=== PATIENT | male | born 1960 | race Caucasian/White ===

== ENCOUNTER 2020-02-12 17:10 | Inpatient (IN) | payer BC, OTHER ==
[~2020-02-12] VITALS: Ht 167 cm; Wt 86.8 kg
[2020-02-12] VITALS (10 sets, daily range): BP systolic 132–175; BP diastolic 79–93
[~2020-02-12 17:10] MED LIST: HYDR-3454 PO
[2020-02-12] MEDS ORDERED: TICAGRELOR 90 MG TABLET (BRILINTA) PO ONE (17:30)
[2020-02-12] MEDS ORDERED: LACTATED RINGERS 1,000 ML IV SCH (17:30)
[2020-02-12] MEDS ORDERED: ASPIRIN 81 MG CHEW (CHILDREN'S ASA) PO ONE (17:30)
[2020-02-12] MEDS ORDERED: PROMETHAZINE INJ 25 MG/ML (PHENERGAN) AMP IVP ONE (17:30)
--- NOTE | 2020-02-12 17:34 | ED General ---
General Chief Complaint: Glucose Problems Stated Complaint: HIGH BLOOD SUGAR Source of Information: Patient Exam Limitations: No Limitations History of Present Illness Date Seen by Provider: Feb 12, 2020 Time Seen by Provider: 17:30 Initial Comments To ER [place] [facility] with ongoing nausea that have been present since Monday, 4 days ago. This began after eating at [employer] in [place]. The other individual with whom he ate has no symptoms. He did have a bit of diarrhea. No fevers no cough no shortness of breath and no chest pain. [place] [facility] [place] he was noted to have a high blood sugar of 400s without being a known diabetic and was referred to ER. Timing/Duration: 1-2 Days Severity: Moderate Associated Systoms: No Chest Pain, No Cough, No Fever/Chills; Nausea/Vomiting Allergies and Home Medications Allergies Coded Allergies: Penicillins (Unverified Allergy, Unknown, 08/14/06) Home Medications Hydrocodone Bit/Acetaminophen 1 Each Tablet, 1-2 TAB PO EVERY 4-6HRS PRN for PAIN Prescribed by: GENE MORALES on 10/03/14 1217 Patient Home Medication List Home Medication List Reviewed: Yes Review of Systems Review of Systems Constitutional: see HPI; No chills, No fever Respiratory: see HPI; No cough, No dyspnea on exertion, No short of breath Cardiovascular: see HPI; No chest pain Gastrointestinal: No abdominal pain; diarrhea, nausea Genitourinary: no symptoms reported Musculoskeletal: no symptoms reported Skin: no symptoms reported Psychiatric/Neurological: No Symptoms Reported Hematologic/Lymphatic: No Symptoms Reported Immunological/Allergic: no symptoms reported Past Kpbysms-Ifymnf-Qaktkg Hx Patient Social History Recent Foreign Travel: No Contact w/Someone Who Travel: No Physical Exam Vital Signs Vital Signs - First Documented 02/12/20 17:16 Temp 35.1 Pulse 58 Resp 18 B/P (MAP) 154/94 (114) Pulse Ox 96 O2 Delivery Room Air Capillary Refill : Height, Weight, BMI Height: 5'7.00" Weight: 219lbs. oz. 99.262218gv; BMI Method: General Appearance: No Apparent Distress, WD/WN, Other (appears ill, rather stoic. Blood pressure 146/90, heart rate is 57 appears to be atrial fibrillation. There does appear to be ST elevation in leads 23 aVF and V3 V4 V5 with ST depression in aVR and V1) Eyes: Bilateral Eye Normal Inspection, Bilateral Eye PERRL, Bilateral Eye EOMI Neck: Full Range of Motion, Normal Inspection Respiratory: Normal Breath Sounds, No Accessory Muscle Use, No Respiratory Distress Cardiovascular: Regular Rate, Rhythm, Normal Peripheral Pulses Gastrointestinal: Non Tender, Soft Extremity: Normal Capillary Refill, Normal Inspection Neurologic/Psychiatric: Alert, Oriented x3 Skin: Normal Color, Warm/Dry Comments Despite EKG changes suggesting STEMI he has no shortness of breath no diaphoresis and adamantly denies any pain or discomfort anywhere. Focused Exam Lactate Level 02/12/20 17:58: Lactic Acid Level 2.62*H Lactic Acid Level Laboratory Tests Test 02/12/20 17:58 Lactic Acid Level 2.62 MMOL/L (0.50-2.00) *H Progress/Results/Core Measures Suspected Sepsis SIRS Temperature: Pulse: Respiratory Rate: Laboratory Tests 02/12/20 17:22: White Blood Count 13.3H Blood Pressure / Mean: 02/12/20 17:58: Lactic Acid Level 2.62*H Laboratory Tests 02/12/20 17:22: Creatinine 1.58H, INR Comment 1.1, Platelet Count 225, Total Bilirubin 1.5H Results/Orders Lab Results Laboratory Tests Test 02/12/20 17:22 02/12/20 17:27 02/12/20 17:58 02/12/20 18:13 Range/Units White Blood Count 13.3 H 4.3-11.0 10^3/uL Red Blood Count 4.97 4.35-5.85 10^6/uL Hemoglobin 15.0 13.3-17.7 G/DL Hematocrit 42 40-54 % Mean Corpuscular Volume 85 80-99 FL Mean Corpuscular Hemoglobin 30 25-34 PG Mean Corpuscular Hemoglobin Concent 35 32-36 G/DL Red Cell Distribution Width 13.0 10.0-14.5 % Platelet Count 225 130-400 10^3/uL Mean Platelet Volume 13.0 H 7.4-10.4 FL Neutrophils (%) (Auto) 83 H 42-75 % Lymphocytes (%) (Auto) 8 L 12-44 % Monocytes (%) (Auto) 10 0-12 % Eosinophils (%) (Auto) 0 0-10 % Basophils (%) (Auto) 0 0-10 % Neutrophils # (Auto) 11.0 H 1.8-7.8 X 10^3 Lymphocytes # (Auto) 1.0 1.0-4.0 X 10^3 Monocytes # (Auto) 1.3 H 0.0-1.0 X 10^3 Eosinophils # (Auto) 0.0 0.0-0.3 10^3/uL Basophils # (Auto) 0.0 0.0-0.1 10^3/uL Neutrophils % (Manual) 77 % Lymphocytes % (Manual) 12 % Monocytes % (Manual) 6 % Eosinophils % (Manual) 1 % Band Neutrophils 4 % Blood Morphology Comment NORMAL Erythrocyte Sedimentation Rate 32 H 0-30 MM/HR Prothrombin Time 14.8 H 12.2-14.7 SEC INR Comment 1.1 0.8-1.4 Activated Partial Thromboplast Time 25 24-35 SEC Sodium Level 126 L 135-145 MMOL/L Potassium Level 3.6 3.6-5.0 MMOL/L Chloride Level 87 L 98-107 MMOL/L Carbon Dioxide Level 15 L 21-32 MMOL/L Anion Gap 24 H 5-14 MMOL/L Blood Urea Nitrogen 52 H 7-18 MG/DL Creatinine 1.58 H 0.60-1.30 MG/DL Estimat Glomerular Filtration Rate 45 BUN/Creatinine Ratio 33 Glucose Level 517 *H 70-105 MG/DL Calcium Level 9.8 8.5-10.1 MG/DL Corrected Calcium 10.0 8.5-10.1 MG/DL Total Bilirubin 1.5 H 0.1-1.0 MG/DL Aspartate Amino Transf (AST/SGOT) 75 H 5-34 U/L Alanine Aminotransferase (ALT/SGPT) 288 H 0-55 U/L Alkaline Phosphatase 98 40-136 U/L Troponin I 11.724 *H <0.028 NG/ML C-Reactive Protein High Sensitivity 25.78 H 0.00-0.50 MG/DL Total Protein 7.4 6.4-8.2 GM/DL Albumin 3.8 3.2-4.5 GM/DL Glucometer 504 *H 70-110 MG/DL Lactic Acid Level 2.62 *H 0.50-2.00 MMOL/L My Orders Orders - JUAN ANDREWS PLATFORM WORKER Cbc With Automated Diff (02/12/20 17:12) Comprehensive Metabolic Panel (02/12/20 17:12) Blood Culture (02/12/20 17:12) Sputum Culture (02/12/20 17:12) Urinalysis (02/12/20 17:12) Urine Culture (02/12/20 17:12) Protime With Inr (02/12/20 17:12) Partial Thromboplastin Time (02/12/20 17:12) Chest 1 View, Ap/Pa Only (02/12/20 17:12) Ed Iv/Invasive Line Start (02/12/20 17:12) Ed Iv/Invasive Line Start (02/12/20 17:12) Vital Signs Adult Sepsis Patie Q15M (02/12/20 17:12) O2 (02/12/20 17:12) Remove Rings In Anticipation O (02/12/20 17:12) Lactic Acid Analyzer (02/12/20 17:12) Aspirin Chewable Tablet (Baby Aspirin Ch (02/12/20 17:30) Ticagrelor Tablet (Brilinta Tablet) (02/12/20 17:30) Promethazine Injection (Phenergan Injec (02/12/20 17:30) Lactated Ringers (Lr 1000 Ml Iv Solution (02/12/20 17:30) Troponin I (02/12/20 17:28) Erythrocyte Sedimentation Rate (02/12/20 17:29) Hs C Reactive Protein (02/12/20 17:29) Accucheck Stat ONCE (02/12/20 17:29) Coronavirus Sars-Cov-2 So 2018 (02/12/20 17:35) Manual Differential (02/12/20 17:22) Insulin (Regular) Human (Novolin R (Per (02/12/20 17:45) Insulin (Regular) Human (Novolin R (Per (02/12/20 17:38) Hepatitis Panel Acute (02/12/20 17:53) Midazolam Injection (Versed Injection) (02/12/20 18:21) Fentanyl Injection (Sublimaze Injection (02/12/20 18:21) Heparin (Bolus Per Protocol) (Heparin (B (02/12/20 18:21) Nitro Drip 70643 Mcg/D5w (Nitroglycerin (02/12/20 18:21) Lidocaine 1% Inj 20 Ml (Xylocaine 1% Inj (02/12/20 18:21) Ns Iv 1000 Ml (Sodium Chloride 0.9%) (02/12/20 18:21) Heparin (Health Careers Instructor) (Heparin (Health Careers Instructor)) (02/12/20 18:22) Medications Given in ED Current Medications Medications Dose Ordered Sig/Valerie Route Start Time Stop Time Status Last Admin Dose Admin Aspirin 324 mg ONCE ONCE PO 02/12/20 17:30 02/12/20 17:31 DC 02/12/20 17:39 324 MG Promethazine HCl 12.5 mg ONCE ONCE IVP 02/12/20 17:30 02/12/20 17:31 DC 02/12/20 17:37 12.5 MG Ticagrelor 180 mg ONCE ONCE PO 02/12/20 17:30 02/12/20 17:31 DC 02/12/20 17:39 180 MG Vital Signs/I&O 02/12/20 17:16 Temp 35.1 Pulse 58 Resp 18 B/P (MAP) 154/94 (114) Pulse Ox 96 O2 Delivery Room Air Capillary Refill : Departure Impression Primary Impression: Diabetes mellitus type 2 Additional Impressions: ST elevation COVID PUI Disposition: 09 ADMITTED INPATIENT Condition: Stable Admissions Decision to Admit Reason: Admit from ER (General) Decision to Admit/Date: Feb 12, 2020 Time/Decision to Admit Time: 17:34 Departure-Patient Inst. Referrals: DEVYN WEBB MD (PCP) Primary Care Physician JUAN ANDREWS APRN Feb 12, 2020 17:34
[2020-02-12 17:36] LABS: BASOPHILS % (AUTO) 0 % (0-10); EOSINOPHILS % (AUTO) 0 % (0-10); HEMATOCRIT 42 % (40-54); LYMPHOCYTES % (AUTO) 8 % (12-44); MEAN CORPUSCULAR HEMOGLOBIN 30 PG (25-34); MEAN CORPUSCULAR HGB CONC 35 G/DL (32-36); MEAN CORPUSCULAR VOLUME 85 FL (80-99); MONOCYTES # (AUTO) 1.3 X 10^3 (0.0-1.0); MONOCYTES % (AUTO) 10 % (0-12); NEUTROPHILS % (AUTO) 83 % (42-75); PLATELET COUNT 225 10^3/uL (130-400); WHITE BLOOD COUNT 13.3 10^3/uL (4.3-11.0)
[2020-02-12] MEDS ORDERED: inSUlin (REGULAR) HUMAN 1 UNIT/0.01 ML (CHARGE PER UNIT) ONE (17:38)
[2020-02-12 17:41] LABS: ALBUMIN 3.8 GM/DL (3.2-4.5)
[2020-02-12 17:42] LABS: POTASSIUM 3.6 MMOL/L (3.6-5.0)
[2020-02-12 17:43] LABS: CALCIUM 9.8 MG/DL (8.5-10.1)
[2020-02-12 17:44] LABS: TOTAL PROTEIN 7.4 GM/DL (6.4-8.2)
[2020-02-12] MEDS ORDERED: inSUlin (REGULAR) HUMAN 1 UNIT/0.01 ML (CHARGE PER UNIT) IV SCH (17:45)
[2020-02-12 17:46] LABS: BILIRUBIN,TOTAL 1.5 MG/DL (0.1-1.0)
[2020-02-12 17:48] LABS: CREATININE SERUM 1.58 MG/DL (0.60-1.30)
[2020-02-12 17:49] LABS: INR 1.1 (0.8-1.4); PROTHROMBIN TIME PATIENT 14.8 SEC (12.2-14.7)
[2020-02-12 17:54] LABS: BAND NEUTROPHILS 4 %; EOSINOPHILS % (MANUAL) 1 %; LYMPHOCYTES % (MANUAL) 12 %; MONOCYTES % (MANUAL) 6 %; NEUTROPHILS % (MANUAL) 77 %; RBC MORPH NORMAL
--- NOTE | 2020-02-12 18:02 | Diagnostic Imaging Report ---
PATIENT HISTORY: ST elevation myocardial infarction. TECHNIQUE: Frontal view of the chest. COMPARISON: None. FINDINGS: The lung volumes are normal. No focal consolidation is seen. No large pleural effusion or pneumothorax is seen. The cardiomediastinal silhouette is normal in size and contour. No acute osseous abnormality is seen. Degenerative changes are seen in the acromioclavicular joints, bilaterally. IMPRESSION: No acute pulmonary abnormality is seen. Findings discussed with Bulmaro Murphy by Dr. Hernandez, on 02/12/2020 5:59 PM. Dictated by: Dictated on workstation # [id number]
--- NOTE | 2020-02-12 18:08 | NUR ---
CONSENT OBTAINED FROM PATIENT FOR HEART CATHERIZATION. PATIENT VERBALIZED UNDERSTANDING.
--- NOTE | 2020-02-12 18:08 | NUR ---
DEFIB PATCHES PLACED ON PATIENT.
--- NOTE | 2020-02-12 18:17 | NUR ---
COVID SWAB PERFORMED.
[2020-02-12] MEDS ORDERED: NITRO DRIP 25000 MCG/D5W 0 ML IV ONE (18:21)
[2020-02-12] MEDS ORDERED: LIDOCAINE 1% INJ 20 ML 20 ML VIAL ONE (18:21)
[2020-02-12] MEDS ORDERED: HEParin 1000 UNIT/ML (10ML VIAL) FOR BOLUS ONE (18:21)
[2020-02-12] MEDS ORDERED: NS IV 1000 ML 1,000 ML ONE (18:21)
[2020-02-12] MEDS ORDERED: fentaNYL INJECTION 100 MCG/2 ML AMP ONE (18:21)
[2020-02-12] MEDS ORDERED: MIDAZOLAM 5 MG/5 ML (VERSED) VIAL ONE (18:21)
[2020-02-12] MEDS ORDERED: HEParin (CATH LAB) 2,000 ML IV ONE (18:22)
--- NOTE | 2020-02-12 18:24 | NUR ---
DR. THAKUR IN ROOM.
--- NOTE | 2020-02-12 18:39 | Cardiac Procedure Note-CS/ASA ---
Pre-Procedure Note Pre-Op Procedure Note H&P Reviewed The H&P was reviewed, patient examined and no changes noted. Date H&P Reviewed: Feb 12, 2020 Time H&P Reviewed: 18:39 Conscious Sedation Pre-Proced Time 18:39 ASA Score 3 For ASA 3 and 4: Consider anesthesia and medical clearance. Also, for patients with a history of failed moderate sedation consider anesthesia. Airway Lungs Heart ASA score ASA 1: a normal healthy patient ASA 2: a patient with a mild systemic disease (mid diabetes, controlled hypertension, obesity x ASA 3: a patient with a severe systemic disease that limits activity (angina, COPD, prior Myocardial infarction) ASA 4: a patient with an incapacitating disease that is a constant threat to life (CHF, renal failure) ASA 5: a moribund patient not expected to survive 24 hrs. (ruptured aneurysm) ASA 6: a declared brain- patient whose organs are being harvested. For emergent operations, add the letter E after the classification Mallampati Classification Grade 3 Sedation Plan Analgesia, Amnesia, Plan communicated to team members, Discussed options with patient/fam, Discussed risks with patient/fam The patient is an appropriate candidate to undergo the planned procedure, sedation, and anesthesia. The patient immediately re-assessed prior to indication. MARITZA THAKUR MD Feb 12, 2020 18:39
--- NOTE | 2020-02-12 18:39 | Consultation-Cardiology ---
HPI-Cardiology Cardiology Consultation Date of Consultation 02/12/20 Date of Admission Time Seen by Provider: 18:34 Indication: Subacute AL HPI 59 years old gentleman with no significant past medical history, started to have nausea and vomiting about a week ago, felt generalized weakness, denied any chest pain but felt that he has no energy, no shortness of breath. No syncope o r near syncopal episode persisted until today, seen at [facility] and referred to the emergency room for evaluation. He was noted to have abnormal EKG and elevated troponin level in addition to electrolyte abnormality and hyperglycemia. Home Medications & Allergies Allergies: Coded Allergies: Penicillins (Unverified Allergy, Unknown, 08/14/06) Home Medication List Reviewed: Yes RID-Jawrhj-Uigoec Hx Patient Social History Alcohol Use: Denies Use Recreational Drug Use: No Smoking Status: Never a Smoker 2nd Hand Smoke Exposure: No Recent Foreign Travel: No Recent Infectious Disease Expo: No Recent Hopitalizations: No Past Medical History No known past medical history Family Medical History Family Medical Hx Family history of diabetes Review of Systems-General Review of Systems Constitutional: see HPI; No chills, No fever; malaise, weakness EENTM: see HPI Respiratory: see HPI; No cough, No dyspnea on exertion, No short of breath Cardiovascular: see HPI; No chest pain Gastrointestinal: see HPI; No abdominal pain; diarrhea, nausea, vomiting Genitourinary: no symptoms reported, see HPI Musculoskeletal: no symptoms reported, see HPI Skin: no symptoms reported, see HPI Psychiatric/Neurological: No Symptoms Reported, See HPI Reviewed Test Results Reviewed Test Results Lab Laboratory Tests Test 02/12/20 17:22 02/12/20 17:27 02/12/20 17:58 02/12/20 18:13 Range/Units White Blood Count 13.3 H 4.3-11.0 10^3/uL Red Blood Count 4.97 4.35-5.85 10^6/uL Hemoglobin 15.0 13.3-17.7 G/DL Hematocrit 42 40-54 % Mean Corpuscular Volume 85 80-99 FL Mean Corpuscular Hemoglobin 30 25-34 PG Mean Corpuscular Hemoglobin Concent 35 32-36 G/DL Red Cell Distribution Width 13.0 10.0-14.5 % Platelet Count 225 130-400 10^3/uL Mean Platelet Volume 13.0 H 7.4-10.4 FL Neutrophils (%) (Auto) 83 H 42-75 % Lymphocytes (%) (Auto) 8 L 12-44 % Monocytes (%) (Auto) 10 0-12 % Eosinophils (%) (Auto) 0 0-10 % Basophils (%) (Auto) 0 0-10 % Neutrophils # (Auto) 11.0 H 1.8-7.8 X 10^3 Lymphocytes # (Auto) 1.0 1.0-4.0 X 10^3 Monocytes # (Auto) 1.3 H 0.0-1.0 X 10^3 Eosinophils # (Auto) 0.0 0.0-0.3 10^3/uL Basophils # (Auto) 0.0 0.0-0.1 10^3/uL Neutrophils % (Manual) 77 % Lymphocytes % (Manual) 12 % Monocytes % (Manual) 6 % Eosinophils % (Manual) 1 % Band Neutrophils 4 % Blood Morphology Comment NORMAL Erythrocyte Sedimentation Rate 32 H 0-30 MM/HR Prothrombin Time 14.8 H 12.2-14.7 SEC INR Comment 1.1 0.8-1.4 Activated Partial Thromboplast Time 25 24-35 SEC Sodium Level 126 L 135-145 MMOL/L Potassium Level 3.6 3.6-5.0 MMOL/L Chloride Level 87 L 98-107 MMOL/L Carbon Dioxide Level 15 L 21-32 MMOL/L Anion Gap 24 H 5-14 MMOL/L Blood Urea Nitrogen 52 H 7-18 MG/DL Creatinine 1.58 H 0.60-1.30 MG/DL Estimat Glomerular Filtration Rate 45 BUN/Creatinine Ratio 33 Glucose Level 517 *H 70-105 MG/DL Calcium Level 9.8 8.5-10.1 MG/DL Corrected Calcium 10.0 8.5-10.1 MG/DL Total Bilirubin 1.5 H 0.1-1.0 MG/DL Aspartate Amino Transf (AST/SGOT) 75 H 5-34 U/L Alanine Aminotransferase (ALT/SGPT) 288 H 0-55 U/L Alkaline Phosphatase 98 40-136 U/L Troponin I 11.724 *H <0.028 NG/ML C-Reactive Protein High Sensitivity 25.78 H 0.00-0.50 MG/DL Total Protein 7.4 6.4-8.2 GM/DL Albumin 3.8 3.2-4.5 GM/DL Glucometer 504 *H 70-110 MG/DL Lactic Acid Level 2.62 *H 0.50-2.00 MMOL/L Physical Exam Physical Exam Vital Signs Vital Signs - First Documented 02/12/20 17:16 Temp 35.1 Pulse 58 Resp 18 B/P (MAP) 154/94 (114) Pulse Ox 96 O2 Delivery Room Air Capillary Refill : Less Than 3 Seconds Height, Weight, BMI Height: 5'7.00" Weight: 219lbs. oz. 99.365976zp; 31.00 BMI Method: General Appearance: No Apparent Distress, WD/WN, Other (appears ill, rather stoic. Blood pressure 146/90, heart rate is 57 appears to be atrial fibrillation. There does appear to be ST elevation in leads 23 aVF and V3 V4 V5 [address] ST depression in aVR and V1) Eyes: Bilateral Eye Normal Inspection, Bilateral Eye PERRL, Bilateral Eye EOMI Neck: Full Range of Motion, Normal Inspection Respiratory: Normal Breath Sounds, No Accessory Muscle Use, No Respiratory Distress Cardiovascular: Regular Rate, Rhythm, Normal Peripheral Pulses Gastrointestinal: Non Tender, Soft Extremity: Normal Capillary Refill, Normal Inspection Neurologic/Psychiatric: Alert, Oriented x3 Skin: Normal Color, Warm/Dry A/P-Cardiology Admission Diagnosis Subacute myocardial infarction Hyperglycemia Acute renal failure Gastroenteritis Assessment/Plan Subacute myocardial infarction, patient had diffuse ST changes with troponin of 11. No active chest pain, planning to proceed with emergency cardiac ca theterization possible PTCA Acute renal failure, hypovolemia, receiving IV fluids. Continue to monitor. Hyperglycemia, will be managed by weave defect charting clerk and primary care team Electrolyte abnormality, metabolic acidosis. Receiving IV fluid, to correct as needed Nausea vomiting, diarrhea, generalized weakness, questionable gastroenteritis. Suspicion of COVID, currently in isolation MARITZA THAKUR MD Feb 12, 2020 18:38
[2020-02-12] MEDS ORDERED: HEParin DRIP 25000 UNIT/500ML 500 ML IV ONE (19:04)
[2020-02-12] MEDS ORDERED: NS IV 1000 ML 1,000 ML IV SCH ×2 (19:07→19:08)
[2020-02-12] MEDS ORDERED: 1/2 NS IV SOLUTION 1,000 ML IV SCH (19:08)
[2020-02-12] MEDS ORDERED: D5 1/2 NS 1000 ML IV SOLUTION 1,000 ML IV SCH (19:15)
[2020-02-12] MEDS ORDERED: PATIENT MAY USE OWN MEDS, ALL PO SCH (19:15)
[2020-02-12] MEDS ORDERED: POTASSIUM CL 10MEQ/50ML IVPB 50 ML IV SCH (19:15)
--- NOTE | 2020-02-12 19:20 | Cardiac Cath Report ---
Cardiac Cath Report Physician (s)/Tire Changer (s) Physician MARITZA THAKUR MD Pre-Procedure Diagnosis Pre-Procedure Diagnosis: Subacute myocardial infarction Post-Procedure Note Procedure Start Date: Feb 12, 2020 Name of Procedure: Left heart catheterization Findings/Procedure Note PROCEDURE NOTE: 59 years old gentleman admitted through the emergency room with generalized weakness, SDS elevation in lead 2 only, T-wave inversion in leads 3 and aVF, ST elevation V4 and V5 with T-wave inversion. Noted to have troponin of 11, denied any chest pain, has been feeling bad for the past 5 days. Decided to proceed with emergency cardiac catheterization. After explaining the procedure to the patient, all pros and cons were explained, all questions were answered. The patient signed the consent and then he was placed on the cardiac catheterization laboratory. Groin was prepped SL fashion local anesthesia was used. Sheath placed in the artery. Gregorio right and left catheter were used to access the coronary system. Pigtail was used to access the left ventricular cavity. Left ventriculogram was done At the end of the procedure the sheath was removed. Closure device was used FINDINGS: Hemodynamics LV 122/14, end-diastolic pressure 14 Aorta 131/56 mean of 88 ANATOMY: Left Main has severe stenosis Left Anterior Descending has severe stenosis with multiple segment of severe stenosis at the proximal and midportion Left Circumflex is dominant artery with severe ostial stenosis Right Coronory Artery is smaller artery totally occluded at the midportion LV Gram is normal in size, hypokinesia of the inferior wall, estimated ejection fraction 50 percent CONCLUSION: 1. subacute myocardial infarction with total occlusion of right coronary artery and severe left main coronary artery stenosis, multiple segment of severe stenosis in the LAD and ostial circumflex disease 2. Normal left ventricular size, hypokinesia at the inferior wall, preserved systolic function with ejection fraction 50 percent, normal left ventricular end-diastolic pressure Hospital course: Patient will be admitted to the intensive care unit, started on IV fluids, started on insulin drip, will work on correcting his diabetic ketoacidosis, s tarted on aspirin and received one dose of Brilinta 180 mg in the emergency room. Discussed the management plan with Dr. fulton and we'll arrange for transfer for evaluation for bypass surgery. Final diagnosis: Diabetic ketoacidosis Subacute myocardial infarction Coronary artery disease Hypertension Anesthesia Type: Conscious Sedation Estimated blood loss (mL): 25 ml Contrast Amount: 28 ml Total Radiation Dose: 470 mGy Post-Procedure Diagnosis Post-operative diagnosis: Diabetic ketoacidosis Subacute myocardial infarction Coronary artery disease Hypertension MARITZA THAKUR MD Feb 12, 2020 19:20
[2020-02-12] MEDS: POTASSIUM CL 10MEQ/50ML IVPB 50 ML IV SCH ×2 (20:22→22:06)
[2020-02-12 21:09] LABS: HEMOGLOBIN 14.5 G/DL (13.3-17.7); MEAN PLATELET VOLUME 13.2 FL (7.4-10.4); RED CELL DISTRIBUTION WIDTH 12.8 % (10.0-14.5); WHITE BLOOD COUNT 11.2 10^3/uL (4.3-11.0)
[2020-02-12 21:20] LABS: BUN/CREATININE RATIO 37; CALCIUM 9.4 MG/DL (8.5-10.1); CARBON DIOXIDE 14 MMOL/L (21-32); CHLORIDE 91 MMOL/L (98-107); CREATININE SERUM 1.32 MG/DL (0.60-1.30); GFR ESTIMATED 56; POTASSIUM 3.2 MMOL/L (3.6-5.0); SODIUM 129 MMOL/L (135-145)
--- OUTSIDE RECORDS SUMMARY | 2020-02-12 21:24 | XMS REPORT ---
Author Author [employer] [facility] [employer] [facility] [employer] Address [address] [address] Care Team Providers Care Negative Developer Name Role Phone DEVYN WEBB Unavailable Allergies No Information Medications No Information Problems The data below is from unstructured sourcesNo known problems or medical conditions. Procedures No Information Immunizations The data below is from unstructured sourcesNo immunization records. Results No Information Vital Signs The data below is from unstructured sources Vital Response Date/Time Temperature (Fahrenheit) 99.1 degree s F (97.6 - 99.5) Temperature (Calculated Celsius) 37. 39162 degrees C (36.4 - 37.5) Temperature Source Temporal Pulse Rate (adult) 76 bpm (60 - 90) Respiratory Rate 16 bpm (12 - 24) O2 Sat by Pulse Oximetry 96 % (88 - 100) Blood Pressure 122/77 mm Hg Pain Pain Intensity 3 Height (Feet) 5 feet Height (Inches) 7.00 inches Height (Calculated Centimeters) 170. 642754 cm Weight (Pounds) 219 pounds Weight (Calculated Grams) 63642.730 gm Weight (Calculated Kilograms) 99.336 730 kilograms Height 5 ft 7 in Weight 219 lb Body Mass Index 34.3 kg/m^2 Interventions No Information Plan of Treatment The data below is from unstructured sourcesNo plan of care. Goals No Information Social History No Information Functional Status The data below is from unstructured sourcesNo functional status results. Mental Status No Information Encounters No Information Medical Equipment No Information Payers No Information Advance Directives Directive Response Recor ded Date/Time Advance Directives No 6:50am Health Care Power of Trading Assistant No 10/03/14 6:50am Organ Donor No 10/03/14 6:50am Resuscitation Status Full Code 10/03/14 6:50am Discharge Instructions No hospital discharge instructions. Additional Source Comments This clinical document has been generated using [employer] software that has been certified by the Office of the National Coordinator for Health Information Technology (ONC 15.99.04.3023.Diam.31.00.0.293346) and the National Committee for High School Mathematics Teacher (NCQA, as an eMeasure certified technology). FOR RECORDS PERTAINING TO PATIENTS WHO ARE OR HAVE BEEN ENROLLED IN A CHEMICAL D EPENDENCY/SUBSTANCE ABUSE PROGRAM, SOME INFORMATION MAY BE OMITTED. This clinica l summary was aggregated from multiple sources. Caution should be exercised in using it in the provision of clinical care. This summary normalizes information from multiple sources, and as a consequence, information in this document may ma terially change the coding, format and clinical context of patient data. In mirela tion, data may be omitted in some cases. CLINICAL DECISIONS SHOULD BE BASED ON T HE PRIMARY CLINICAL RECORDS. [employer] provides no warranty or guara ntee of the accuracy or completeness of information in this document.The followi ng information is based on time limited clinical information
--- OUTSIDE RECORDS SUMMARY | 2020-02-12 21:24 | XMS REPORT | Continuity of Care Document ---
Author Organization Unknown Address Unknown Phone Unavailable Allergies Active Description Code Type Severity Reaction Onset Reported/Identified Relationship to Patient Clinical Status Yes Penicillins [id number] Drug Aller gy Unknown N/A 08/14/2006 Medications There is no data. Problems Date Dx Coded Attending Type Code Diagnosis Diagnosed By 10/03/2014 KIM DUNN, MARGOTH Horner Ot 553.21 INCISIONAL HERNIA 10/08/2014 KIM DUNN, MARGOTH Horner Ot 553.20 10/08/2014 KIM DUNN, MARGOTH Horner Ot V72.63 10/08/2014 KIM DUNN, MARGOTH Horner Ot V74.8 02/12/2020 KIM DUNN, MARGOTH Horner Ot 553.20 VENTRAL HERNIA NOS 02/12/2020 KIM DUNN, MARGOTH Horner Ot V72.63 PRE-PROCEDURAL LABORATORY EXAMINATION 02/12/2020 KIM DUNN, MARGOTH Horner Ot V74.8 SCREEN-BACTERIAL DIS NEC Procedures There is no data. Results Test Result Range Complete blood count (CBC) with automate d white blood cell (WBC) differential - 02/12/20 17:22 Blood leukocytes automated count (number/volume) 13.3 10*3/uL 4.3-11.0 Blood erythrocytes automated count (number/volume) 4.97 10*6/uL 4.35-5.85 Venous blood hemoglobin measurement (mass/volume) 15.0 g/dL 13.3-17.7 Blood hematocrit (volume fraction) 42 % 40-54 Automated erythrocyte mean corpuscular volume 85 [ foz_us] 80-99 Automated erythrocyte mean corpuscular h emoglobin (mass per erythrocyte) 30 pg 25-34 Automated erythrocyte mean corpuscular h emoglobin concentration measurement (mass/volume) 35 g/dL 32-36 Automated erythrocyte distribution width ratio 13. 0 % 10.0- 14.5 Automated blood platelet count (count/volume) 225 10*3/uL 130-400 Automated blood platelet mean volume measurement 13.0 [foz_us] 7.4-10.4 Automated blood neutrophils/100 leukocytes 83 % 42-75 Automated blood lymphocytes/100 leukocytes 8 % 12-44 Blood monocytes/100 leukocytes 10 % 0-12 Automated blood eosinophils/100 leukocytes 0 % 0-10 Automated blood basophils/100 leukocytes 0 % 0-10 Blood neutrophils automated count (number/volume) 11.0 10*3 1.8-7.8 Blood lymphocytes automated count (number/volume) 1.0 10*3 1.0-4.0 Blood monocytes automated count (number/volume) 1. 3 10*3 0.0-1.0 Automated eosinophil count 0.0 10*3/uL 0 .0-0.3 Automated blood basophil count (count/volume) 0.0 10*3/uL 0.0-0.1 Comprehensive metabolic panel - 02/12/20 17:22 Serum or plasma sodium measurement (moles/volume) 126 mmol/L 135-145 Serum or plasma potassium measurement (moles/volume) 3.6 mmol/L 3.6-5.0 Serum or plasma chloride measurement (moles/volume) 87 mmol/L 98-107 Carbon dioxide 15 mmol/L 21-32 Serum or plasma anion gap determination (moles/volume) 24 mmol/L 5-14 Serum or plasma urea nitrogen measurement (mass/volume ) 52 mg/dL 7-18 Serum or plasma creatinine measurement (mass/volume) 1.58 mg/dL 0.60-1.30 Serum or plasma urea nitrogen/creatinine mass ratio 33 NRG Serum or plasma creatinine measurement w ith calculation of estimated glomerular filtration rate 45 NRG Serum or plasma glucose measurement (mass/volume) 517 mg/dL 70-105 Serum or plasma calcium measurement (mass/volume) 9.8 mg/dL 8.5-10.1 Serum or plasma total bilirubin measurement (mass/volu me) 1.5 mg/dL 0.1-1.0 Serum or plasma alkaline phosphatase mookie surement (enzymatic activity/volume) 98 U/L 40-136 Serum or plasma aspartate aminotransfera se measurement (enzymatic activity/volume) 75 U/L 5-34 Serum or plasma alanine aminotransferase measurement (enzymatic activity/volume) 288 U/L 0-55 Serum or plasma protein measurement (mass/volume) 7.4 g/dL 6.4-8.2 Serum or plasma albumin measurement (mass/volume) 3.8 g/dL 3.2-4.5 CALCIUM CORRECTED 10.0 mg/dL 8.5-10.1 PT panel in platelet poor plasma by coag ulation assay - 02/12/20 17:22 Prothrombin time (PT) in platelet poor plasma by coagu lation assay 14.8 s 12.2-14.7 INR in platelet poor plasma or blood by coagulation as say 1.1 0.8-1.4 Activated partial thromboplastin time (a PTT) in platelet poor plasma bycoagulation assay - 02/12/20 17:22 Activated partial thromboplastin time (a PTT) in platelet poor plasma bycoagulation assay 25 s 24-35 Manual absolute plasma cell count - 01/26 03/16 17:22 Blood monocytes/100 leukocytes 6 % NRG Manual blood segmented neutrophils/100 leukocytes 77 % NRG Blood band neutrophils/100 leukocytes 4 % NRG Manual blood lymphocytes/100 leukocytes 12 % NRG Manual eosinophils/100 leukocytes in nose 1 % NRG Blood erythrocyte morphology finding identification NORMAL NRG Serum or plasma C reactive protein measu rement (mass/volume) - 02/12/20 17:22 Serum or plasma C reactive protein measurement (mass/v olume) 25.78 mg/dL 0.00-0.50 Serum or plasma troponin i.cardiac measu rement (mass/volume) - 02/12/20 17:22 Serum or plasma troponin i.cardiac measurement (mass/v olume) 11.724 ng/mL <0.028 Erythrocyte sedimentation rate by marvel gren method - 02/12/20 17:22 Erythrocyte sedimentation rate by westergren method 32 mm 0- 30 Capillary blood glucose measurement by g lucometer (mass/volume) - 02/12/20 17:27 Capillary blood glucose measurement by glucometer (mas s/volume) 504 mg/dL 70-110 Blood lactic acid measurement (moles/vol ume) - 02/12/20 17:58 Blood lactic acid measurement (moles/volume) 2.62 mmol/L 0.50-2.00 Capillary blood glucose measurement by g lucometer (mass/volume) - 02/12/20 19:57 Capillary blood glucose measurement by glucometer (mas s/volume) 396 mg/dL 70-110 Serum or plasma lactate measurement (mol es/volume) - 02/12/20 20:43 Serum or plasma lactate measurement (moles/volume) 2.62 mmol/L 0.50-2.00 Whole blood basic metabolic panel - 01/26 03/16 20:43 Serum or plasma sodium measurement (moles/volume) 129 mmol/L 135-145 Serum or plasma potassium measurement (moles/volume) 3.2 mmol/L 3.6-5.0 Serum or plasma chloride measurement (moles/volume) 91 mmol/L 98-107 Serum or plasma anion gap determination (moles/volume) 24 mmol/L 5-14 Serum or plasma urea nitrogen measurement (mass/volume ) 49 mg/dL 7-18 Serum or plasma creatinine measurement (mass/volume) 1.32 mg/dL 0.60-1.30 Serum or plasma urea nitrogen/creatinine mass ratio 37 NRG Serum or plasma creatinine measurement w ith calculation of estimated glomerular filtration rate 56 NRG Serum or plasma calcium measurement (mass/volume) 9.4 mg/dL 8.5-10.1 Automated blood complete blood count (he mogram) panel - 02/12/20 20:51 Blood leukocytes automated count (number/volume) 11.2 10*3/uL 4.3-11.0 Blood erythrocytes automated count (number/volume) 4.82 10*6/uL 4.35-5.85 Venous blood hemoglobin measurement (mass/volume) 14.5 g/dL 13.3-17.7 Blood hematocrit (volume fraction) 41 % 40-54 Automated erythrocyte mean corpuscular volume 85 [ foz_us] 80-99 Automated erythrocyte mean corpuscular h emoglobin (mass per erythrocyte) 30 pg 25-34 Automated erythrocyte mean corpuscular h emoglobin concentration measurement (mass/volume) 35 g/dL 32-36 Automated erythrocyte distribution width ratio 12. 8 % 10.0- 14.5 Automated blood platelet count (count/volume) 187 10*3/uL 130-400 Automated blood platelet mean volume measurement 13.2 [foz_us] 7.4-10.4 Capillary blood glucose measurement by g lucometer (mass/volume) - 02/12/20 21:00 Capillary blood glucose measurement by glucometer (mas s/volume) 390 mg/dL 70-110 Encounters ACCT No. Visit Date/Time Discharge Status Pt. Type Provider Facility Loc./Unit Complaint [id number] 10/03/2014 06:11:00 015 13:40:00 DIS Outpatient KIM DUNN, MARGOTH Horner [facility] VENTRAL HERNIA [id number] 09/26/2014 07:55:00 015 23:59:59 CLS Outpatient MARGOTH ALVAREZ MD [facility] PREOP VENTRAL HERNIA [id number] 02/12/2020 19:20:[address] Inpatient BLAZE DUNN, MARITZA Mancilla [facility] ICU [facility]
[2020-02-12 21:30] LABS: GLUCOSE 404 MG/DL (70-105)
--- OUTSIDE RECORDS SUMMARY | 2020-02-12 22:17 | XMS REPORT ---
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 11233 degrees C (36.4 - 37.5) Temperature Source Temporal Pulse Rate (adult) 76 bpm (60 - 90) Respiratory Rate 16 bpm (12 - 24) O2 Sat by Pulse Oximetry 96 % (88 - 100) Blood Pressure 122/77 mm Hg Pain Pain Intensity 3 Height (Feet) 5 feet Height (Inches) 7.00 inches Height (Calculated Centimeters) 170. 219557 cm Weight (Pounds) 219 pounds Weight (Calculated Grams) 87460.730 gm Weight (Calculated Kilograms) 99.336 730 kilograms [...] Directives No 6:50am Health Care Power of Business Practices Officer No 10/03/14 6:50am Organ Donor No 10/03/14 6:50am Resuscitation Status Full Code 10/03/14 6:50am Discharge Instructions No hospital discharge instructions. Additional Source Comments This clinical document has been generated using [employer] software that has been certified by the Office of the National Coordinator for Health Information Technology (ONC 15.99.04.3023.Diam.31.00.0.465861) and the National Committee for Mh Teacher (NCQA, as an eMeasure certified technology). [...] BASED ON T HE PRIMARY CLINICAL RECORDS. [employer] provides no warranty or guara ntee of the accuracy or completeness of information in this document.The followi ng information is based on time limited clinical information
--- OUTSIDE RECORDS SUMMARY | 2020-02-12 22:17 | XMS REPORT | Continuity of Care Document ---
Author Organization Unknown Address Unknown Phone Unavailable Allergies Active Description Code Type Severity Reaction Onset Reported/Identified Relationship to Patient Clinical Status Yes Penicillins [id number] Drug Aller gy Unknown N/A 08/14/2006 Medications [...] plasma chloride measurement (moles/volume) 91 mmol/L 98-107 Carbon dioxide 14 mmol/L 21-32 Serum or plasma anion gap determination (moles/volume) 24 mmol/L 5-14 Serum or plasma urea nitrogen measurement (mass/volume ) 49 mg/dL 7-18 Serum or plasma creatinine measurement (mass/volume) 1.32 mg/dL 0.60-1.30 Serum or plasma urea nitrogen/creatinine mass ratio 37 NRG Serum or plasma creatinine measurement w ith calculation of estimated glomerular filtration rate 56 NRG Serum or plasma glucose measurement (mass/volume) 404 mg/dL 70-105 Serum or plasma calcium measurement (mass/volume) 9.4 mg/dL 8.5-10.1 Beta-hydroxybutyric acid measurement - 0 02/12/20 20:43 Beta-hydroxybutyric acid measurement > mmol/L 0.00-0.27 Automated blood complete blood count (he mogram) [...] Status Pt. Type Provider Facility Loc./Unit Complaint [id number] 10/03/2014 06:11:00 015 13:40:00 DIS Outpatient MARGOTH ALVAREZ MD [facility] SDC VENTRAL HERNIA [id number] 09/26/2014 07:55:00 015 23:59:59 CLS Outpatient MARGOTH ALVAREZ MD [facility] PREOP VENTRAL HERNIA [id number] 02/12/2020 19:20:[address] Inpatient BLAZE DUNN, MARITZA Mancilla [facility] ICU [facility]
--- OUTSIDE RECORDS SUMMARY | 2020-02-12 22:34 | XMS REPORT ---
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 [employer] Address [address] [address] Care Team Providers Care Pipe Bowl Paint Trimmer Name Role Phone DEVYN WEBB Unavailable Allergies [...] (97.6 - 99.5) Temperature (Calculated Celsius) 37. 29109 degrees C (36.4 - 37.5) Temperature Source Temporal Pulse Rate (adult) 76 bpm (60 - 90) Respiratory Rate 16 bpm (12 - 24) O2 Sat by Pulse Oximetry 96 % (88 - 100) Blood Pressure 122/77 mm Hg Pain Pain Intensity 3 Height (Feet) 5 feet Height (Inches) 7.00 inches Height (Calculated Centimeters) 170. 424417 cm Weight (Pounds) 219 pounds Weight (Calculated Grams) 83150.730 gm Weight (Calculated Kilograms) 99.336 730 kilograms [...] Directives No 6:50am Health Care Power of Certified Pharmacist Assistant No 10/03/14 6:50am Organ Donor No 10/03/14 6:50am Resuscitation Status Full Code 10/03/14 6:50am Discharge Instructions No hospital discharge instructions. Additional Source Comments This clinical document has been generated using [employer] software that has been certified by the Office of the National Coordinator for Health Information Technology (ONC 15.99.04.3023.Diam.31.00.0.470981) and the National Committee for Boat Motor Mechanic (NCQA, as an eMeasure certified technology). FOR [...] BASED ON T HE PRIMARY CLINICAL RECORDS. [employer] provides no warranty or guara ntee of the accuracy or completeness of information in this document.The followi ng information is based on time limited clinical information
--- OUTSIDE RECORDS SUMMARY | 2020-02-12 22:34 | XMS REPORT | Continuity of Care Document ---
Author Organization Unknown Address Unknown Phone Unavailable Allergies Active Description Code Type Severity Reaction Onset Reported/Identified Relationship to Patient Clinical Status Yes Penicillins [id number] Drug Aller gy Unknown N/A 08/14/2006 Medications [...] Status Pt. Type Provider Facility Loc./Unit Complaint [id number] 10/03/2014 06:11:00 015 13:40:00 DIS Outpatient MARGOTH ALVAREZ MD [facility] SDC VENTRAL HERNIA [id number] 09/26/2014 07:55:00 015 23:59:59 CLS Outpatient MARGOTH ALVAREZ MD [facility] PREOP VENTRAL HERNIA [id number] 02/12/2020 19:20:[address] Inpatient BLAZE DUNN, MARITZA Mancilla [facility] ICU [facility]
[2020-02-13] MEDS ORDERED: ASPIRIN E.C. 81 MG (ECOTRIN) TAB PO SCH (09:00)
[2020-02-13 23:16] LABS: HEPATITIS C ANTIBODY C Non-Reactive (Non-Reactive)
== END 2020-02-12 22:37 | disposition designated cancer center or children's hospital (05) | DRG 280 ==
LOC: EDUNIT# 17:10 → ER 17:11 → CATH 18:39 → ICU 19:20
PROVIDERS: ADMIT Internal Medicine Cardiovascular Disease; ATTEND Internal Medicine Cardiovascular Disease
PROC: 4A023N7 Measurement of Cardiac Sampling and Pressure, Left Heart, Percutaneous Approach (ICD-10-PCS; principal; 2020-02-12)
PROC: B2111ZZ Fluoroscopy of Multiple Coronary Arteries using Low Osmolar Contrast (ICD-10-PCS; 2020-02-12)
PROC: B2151ZZ Fluoroscopy of Left Heart using Low Osmolar Contrast (ICD-10-PCS; 2020-02-12)
DX: I21.3 ST elevation (STEMI) myocardial infarction of unspecified site (principal); E11.10 Type 2 diabetes mellitus with ketoacidosis without coma; N17.9 Acute kidney failure, unspecified; K52.9 Noninfective gastroenteritis and colitis, unspecified; I25.10 Atherosclerotic heart disease of native coronary artery without angina pectoris; I10 Essential (primary) hypertension
CPT/HCPCS: 36415; 71045; 80048; 80053; 80074; 82010; 82962; 83036; 83605; 84484; 85007; 85027; 85610; 85652; 85730; 86141; 87040; 87635; 93005; 93458